=== PATIENT | male | born 1985 | race Caucasian/White ===

== ENCOUNTER → 2018-12-12 15:13 | Outpatient (CLI) | payer BC, SELFPAY ==
--- NOTE | 2018-12-12 15:14 | MR_ITS ---
MR elbow LT wo con CLINICAL INDICATION: Left elbow pain and weakness. Injury with popping sound ITS.REASON: evaluate for a distal bicep tear ORDERING PHYSICIAN: Dennis Driver MD PATIENT AGE: 33 years Comparison: 12/08/2018 TECHNIQUE: Routine multiplanar multiecho sequences are performed without contrast. FINDINGS: There does appear to be a complete tear of the distal aspect of the biceps tendon. The distal aspect of the tendon is thickened with some increased T2 signal at this area. There may be a few intact fibers extending to the radial tuberosity. For the most part however, the tendon appears retracted by approximately 1 cm. There is some edema around the retracted tendon. There is also some edema in the anterior aspect of the subcutaneous tissues. No acute fractures evident. No other significant anomalies are evident. The brachioradialis tendon appears intact IMPRESSION: Tear of the distal aspect of the biceps tendon which appears torn at the insertion upon the radial tuberosity with retraction of the tendon by approximately 1 cm. There may be a few intact fibers present.
== END ==
PROVIDERS: Visit Provider Orthopaedic Surgery
DX: M25.522 Pain in left elbow (principal)
CPT/HCPCS: 73221

== ENCOUNTER → 2018-12-20 10:11 | Outpatient (CLI) | payer BC, SELFPAY ==
[2018-12-20 11:38] LABS: Anion Gap 13.2 mEq/L (5-15); Basophils # 0.1 K/mm3 (0-0.2); Basophils % 0.8 % (0.1-2.0); Blood Urea Nitrogen 15 mg/dL (7-18); Calcium 9.3 mg/dL (8.5-10.1); Carbon Dioxide 27 mmol/L (21.0-32.0); Chloride 105 mmol/L (98-107); Creatinine,Serum 1.06 mg/dL (0.70-1.30); Eosinophils # 0.3 K/mm3 (0.0-0.4); Estimated Glomerular Filt Rate 80 ml/min (>60); GFR (African American) 96 ML/MIN (>60); Glucose 110 mg/dL (74-106); Hematocrit 43.9 % (42.0-52.0); Hemoglobin 14.9 g/dL (14.1-18.0); Lymphocytes # 4.1 K/mm3 (0.7-4.5); Lymphocytes % 49.9 % (10-50); Mean Corpuscular Hemoglobin 29.2 pg (27.0-31.2); Mean Corpuscular Volume 85.8 fl (80-94); Mean Platelet Volume 6.5 fl (7.4-10.4); Monocytes # 0.5 K/mm3 (0.1-1.0); Monocytes % 5.7 % (1.7-9.3); Neutrophils # 3.3 K/mm3 (1.8-7.8); Neutrophils % 39.7 % (37.0-80.0); Platelet Count 300 K/mm3 (142-424); Potassium 4.2 mmoL/L (3.5-5.1); Red Blood Count 5.12 M/mm3 (4.60-6.20); Red Cell Distribution Width 14.1 % (11.5-17.5); Sodium 141 mmol/L (136-145); White Blood Count 8.2 K/mm3 (4.8-10.8)
== END ==
PROVIDERS: Visit Provider Orthopaedic Surgery
DX: Z01.818 Encounter for other preprocedural examination (principal)
CPT/HCPCS: 36415; 80048; 85025

== ENCOUNTER 2019-01-03 13:37 | Outpatient (RCR) | payer BC, SELFPAY | END 2019-01-03 14:00 | disposition home or self-care (01) | LOC: OT 13:37 | PROVIDERS: Visit Provider Orthopaedic Surgery | DX: S46.212A Strain of muscle, fascia and tendon of other parts of biceps, left arm, initial encounter (principal) | CPT/HCPCS: 97763 ==

== ENCOUNTER 2019-03-20 13:30 | Outpatient (RCR) | payer BC, SELFPAY ==
--- NOTE | 2019-01-07 13:54 | HMH.OTOPEV ---
OT Inpatient Evaluation Rehab OT Outpatient Eval Start: 01/07/19 13:30 Freq: Status: Active Protocol: Document 01/07/19 13:32 TFRY (Rec: 01/07/19 13:54 TFRY [id number]) Electronically Signed By Jamila Galvan OT 01/07/19 13:32 Outpatient Therapy Subjective History Subjective History This is a 33 year old right handed male referred to occupational therapy for left bicep tendon repair on 12/23/18 . Patient repored the injury occurred on December 08 when he went to lift a 4 baxter. Chief Complaint Pain Symptom Type Sharp,Burning Symptoms Relieved By Rest/Positioning,Brace/Support Prior Functional Limitations None Current Functional Limitations Reaching,Lifting Symptom Description Intermittent Level of pain today (0-10) 0 Pain scale - at its best (0-10) 0 Pain scale - at its worst (0-10) 4 Shoulder/Elbow Eval Shoulder Objective Measurements Elbow Objective Measurements Elbow ROM Left decreased ROM elbow exam standard left pain with passive ROM elbow exam left standard Elbow Extension Passive Range of Motion 20 (degrees) Elbow Flexion Passive Range of Motion ( 130 degrees) Elbow ROM Limitations Pain Elbow MMT Elbow/Forearm Strength Reason Not Orthopedic Precautions Measured OT Outpatient Assessment Impairments Problems/Impairments Palpation Tenderness,Impaired Range of Motion,Impaired Strength,Impaired Lifting, Impaired Work Activities, Subjective C/O Pain Prognosis Rehab Potential Good Clinical Impression Consistent with Diagnosis Yes Short Term Goals Number of Weeks 4 Increase Range of Motion Yes: Left elbow PROM - WFL Patient to be Ind w/ HEP Yes Patient to be Ind w/ Advanced HEP Yes Senior Living Goals Number of Weeks 8 Increase Range of Motion Yes: Left elbow AROM - WFL Increase Strength Yes: Left elbow strength - 4-/ 5 Restore Ability to Lift Objects to Waist Yes: Left upper extremity 5 Level lbs Improve Tolerance to Work Activities Yes: Lift with both upper extremities 20 lbs Decrease Subjective C/O Pain Yes: pain in left arm a 2 at worse Patient to be Ind w/ HEP Yes Patient to be Ind w/ Advanced HEP Yes Outpatient Therapy Plan of Care Treatment Plan May Include Therapeutic Exercise Including Home
--- NOTE | 2019-03-06 09:42 | HMH.RHREAS ---
Rehab Reassessment Rehab OP Re-assessment Start: 03/06/19 08:45 Freq: Status: Active Protocol: Document 03/06/19 08:45 TFRY (Rec: 03/06/19 09:38 TFRY [id number]) Electronically Signed By Jamila Galvan OT 03/06/19 08:45 Rehab Re-assessment Subjective Subjective I don't go back to the doctor till April. Objective Objective Notes Patient seen this date for skilled occupational therapy services. Reassessment of right elbow AROM is WFL in all planes. Right elbow strength : flexion - 4-/5; extension - 4-/5; supination - 3+/5; pronation - 3+/5. Patient reports not having pain in elbow. Assessment Progress Assessment Progressing as Expected Assessment Notes ROM and strength are implroving. Patient goals met AROM met Goals Not Met Strength Revised Goals 1. Patient to have 5/5 strength in right elbow flexion/extension and forearm pronation/supination. Plan Plan Continue working on improving strength per revised goal. Frequency of Therapy 2 Duration of therapy 4 Time and Billing Re-Eval Time 5 Re-Eval Billing Units 0 PHYSICIAN CERTIFICATION: I certify the specified therapy services for Noah Zaidi are required, authorized, and reviewed every 30 days.
== END 2019-03-20 13:35 | disposition home or self-care (01) ==
LOC: OT 13:30
PROVIDERS: Visit Provider Orthopaedic Surgery
DX: S59.902D Unspecified injury of left elbow, subsequent encounter (principal); S43.21 Anterior subluxation and dislocation of sternoclavicular joint
CPT/HCPCS: 97014; 97110; 97140; 97164; 97165; G0283

== ENCOUNTER → 2019-04-22 13:01 | Outpatient (CLI) | payer BC, SELFPAY ==
--- NOTE | 2019-04-22 13:05 | XR_ITS ---
PROCEDURE: XR ELBOW LT MIN 3V CLINICAL INDICATION: sp LT bicep tendon repair DOS 04/22/19 COMPARISON: Elbow L from 12/08/2018 FINDINGS: Postoperative change from biceps tendon repair is noted with tunnel defect and metallic density associated with the proximal shaft of the radius. No acute fracture or dislocation is apparent The joint spaces are well-preserved. No significant degenerative/arthritic changes. No erosive changes evident. Other findings:None. IMPRESSION: Normal postoperative appearance for biceps tendon repair. Dictated by: Buck Artis 04/22/2019 16:52 Electronically signed by Buck Artis in [place] 04/22/2019 16:52
== END ==
PROVIDERS: Visit Provider Orthopaedic Surgery
DX: S46.212A Strain of muscle, fascia and tendon of other parts of biceps, left arm, initial encounter (principal); Z09 Encounter for follow-up examination after completed treatment for conditions other than malignant neoplasm
CPT/HCPCS: 73080

== ENCOUNTER 2021-09-03 15:39 | Emergency (ER) | payer BC, SELFPAY ==
[2021-09-03 16:01] VITALS: BP 180/105; PULSE 95; RESP 18; TEMP 37; O2SAT 98; BMI 32.6
--- NOTE | 2021-09-03 16:22 | HMH.EDUTC ---
[facility] – [place] Disposition Clinical Impression: Low back pain Qualifiers: Chronicity: acute Back pain laterality: left Sciatica presence: with sciatica Sciatica laterality: sciatica of left side Qualified Code(s): M54.42 - Lumbago with sciatica, left side Low back strain Qualifiers: Encounter type: initial encounter Qualified Code(s): S39.012A - Strain of muscle, fascia and tendon of lower back, initial encounter Disposition: Home, Self-Care Condition on Discharge: Good Instructions: DI for Low Back Pain Additional Instructions: Go home and rest. It would be best if you rested tomorrow too. No heavy lifting. No twisting. Take the oral medications as directed. The muscle relaxer (cyclobenzaprine--Flexeril) will make you drowsy, so don't drive or operate heavy machinery after taking it. Don't start the oral steroids (medrol dose pack) until tomorrow, since you had the shots in here today. Follow up with your regular doctor. GO TO THE ER FOR ANY WORSENING SYMPTOMS OR CONCERN, ESPECIALLY BOWEL OR BLADDER ISSUES, SADDLE AREA NUMBNESS, FEVER, ETC Prescriptions: Cyclobenzaprine HCl [Cyclobenzaprine 10mg Tab] 10 mg PO BIDP PRN #20 tab PRN Reason: Muscle Spasm Transmission Status: Pending to [facility] methylPREDNISolone [Medrol] 4 mg PO DIRECTED 6 Days #21 packet Transmission Status[id number] Referrals: Provider,Referral, [Primary Care Provider] - Forms: Work/School Release Time of Disposition: 17:55 Medical Decision Making - Medical Records Medical records reviewed: No: I reviewed the patient's medical records. - Jeffery Inquiry Pt receiving controlled substance: No Vital Signs: 09/03/21 16:01 09/03/21 17:28 Temperature 98.6 F 98.6 F Temperature Source Oral Pulse Rate 95 H Pulse Rate [Left Radial] 95 H Respiratory Rate 18 18 Blood Pressure 180/105 H Blood Pressure [Right Arm] 180/105 H Blood Pressure Mean [Right Arm] 130 02 Sat by Pulse Oximetry 98 Orders (Tests/Meds): ED MEDICATIONS Discontinued Medications Generic Name Dose Route Start Last Admin Trade Name Freq PRN Reason Stop Dose Admin Ketorolac Tromethamine 60 mg 09/03/21 17:17 09/03/21 17:28 Ketorolac 60mg/2ml Vial IM 09/03/21 17:18 60 mg ONCE ONE Administration Methylprednisolone Sodium Succinate 125 mg 09/03/21 17:17 09/03/21 17:28 Methylprednisolone Sod Succ 125mg Vial IM 09/03/21 17:18 125 mg ONCE ONE Administration Orphenadrine Citrate 60 mg 09/03/21 17:18 09/03/21 17:28 Orphenadrine Citrate 60mg/2ml Vial IM 09/03/21 17:19 60 mg ONCE ONE Administration ORDERS Category Date Time Status XR lumbar spine 2-3V Stat Exams 09/03/21 17:01 Taken XR thoracic spine 2V Stat Exams 09/03/21 17:01 Taken - Radiology Data #1 Image(s): L-Spine Image Reviewed: Yes I reviewed the patient's radiology image, Yes I have reviewed radiologist's interpretation [facility] [place] HPI - General Stated complaint: back pain no accident Time Seen by Provider: 09/03/21 16:22 Mode of Arrival: Ambulatory Source of Information: Patient Description of Symptoms (Recalled from Triage Doc. by RN): pt c/o back pain for about a week. pt states it is the lower part of his back, when he takes a deep breath or cough or move, it hurts. HEENT Symptoms (Recalled from RN notes): No Resp Symptoms (Recalled from RN notes): No Skin Symptoms (Recalled from RN notes): No MS Symptoms (Recalled from RN notes): Yes Functional Status (Recalled from RN notes): wnl - History of Present Illness Provider Complaint: He states that for the past 2 days he has had left sided low back pain. He denies any known injury. He states that he had to crawl under a boat trailer to work on its lights. When he rolled to come out from under the trailer and then stood up, he began having this pain. He has had low back pain but never as bad as this. He denies any numbness or tingling of his extremities. When he
--- NOTE | 2021-09-03 17:01 | XR_ITS ---
PROCEDURE INFORMATION: Exam: XR Thoracic Spine Exam date and time: 09/03/2021 5:00 PM Age: 36 years old Clinical indication: Pain in thoracic spine; Additional info: Back pain TECHNIQUE: Imaging protocol: XR of the thoracic spine. Views: 2 views. Total images: 3 COMPARISON: No relevant prior studies available. FINDINGS: Bones/joints: Normal thoracic spine alignment. No blastic or lytic lesions. Disc space heights are well-maintained. Minimal anterior spurring at a few midthoracic levels. Question mild fullness of the left paraspinous soft tissues in the mid and lower thoracic spine without focality. This is nonspecific. CT would allow more sensitive/specific assessment if clinically indicated. No adjacent bony changes. No rib fractures are identified within the [id number]. Soft tissues: Unremarkable. Lungs: Granulomatous calcification in the right lower lobe and right perihilar region. Pleural space: No pleural effusion or pneumothorax is evident within the [id number]-[id number]. Vasculature: Mild aortic ectasia. Cardiomediastinal silhouette otherwise unremarkable. Other findings: No fractures are evident radiographically. IMPRESSION: 1. No definite acute process. No evidence of fracture or traumatic subluxation. 2. Minor osteoarthritic spurring at a few midthoracic levels. 3. Mild fullness of the left paraspinous soft tissues which is nonspecific and may simply relate to the esophagus. No adjacent bony changes. If clinically indicated, CT would be more sensitive and specific.
--- NOTE | 2021-09-03 17:01 | XR_ITS ---
PROCEDURE INFORMATION: Exam: XR Lumbosacral Spine Exam date and time: 09/03/2021 5:00 PM Age: 36 years old Clinical indication: Low back pain TECHNIQUE: Imaging protocol: XR of the lumbosacral spine. Views: 2 or 3 views. Total images: 3 COMPARISON: No relevant prior studies available. FINDINGS: Bones/joints: Normal alignment. Normal mineralization. No compression injuries or other fractures. No blastic or lytic lesions. Disc space heights are well-maintained. Minor facet hypertrophic changes L4-L5 and L5-S1. No gross pars defects. The visualized sacrum/pelvis and SI joints are unremarkable. A 2.5 cm radiodensity projects over the right obturator foramen on the frontal view and is not visualized on the lateral view, probably extrinsic. Soft tissues: No gross soft tissue abnormalities. Gastrointestinal tract: Unremarkable bowel gas pattern. IMPRESSION: 1. No acute findings. 2. Minor lower lumbar facet hypertrophy.
[2021-09-03 17:28] VITALS: BP 180/105; PULSE 95; RESP 18; TEMP 37
== END 2021-09-03 18:03 | disposition home or self-care (01) ==
PROVIDERS: Emergency Provider Nurse Practitioner Family
DX: M54.42 Lumbago with sciatica, left side (principal); S39.012A Strain of muscle, fascia and tendon of lower back, initial encounter; Z79.52 Long term (current) use of systemic steroids; Z88.0 Allergy status to penicillin; Z88.1 Allergy status to other antibiotic agents; Z88.3 Allergy status to other anti-infective agents
CPT/HCPCS: 72070; 72100; 96372; 99213; G0463

== ENCOUNTER 2021-09-30 16:43 | Emergency (ER) | payer BC, SELFPAY ==
[2021-09-30 17:15] VITALS: BP 140/99; PULSE 86; RESP 19; TEMP 36.7; O2SAT 99; BMI 32.6
--- NOTE | 2021-09-30 17:30 | HMH.EDUTC ---
[facility] – [place] Disposition Clinical Impression: Low back pain Qualifiers: Chronicity: unspecified Back pain laterality: unspecified Sciatica presence: without sciatica Qualified Code(s): M54.50 - Low back pain, unspecified Disposition: Home, Self-Care Condition on Discharge: Good Instructions: Low Back Pain, DI for Low Back Pain Additional Instructions: *Etodolac aldair 8 hours with meal as needed for pain/inflammation *Remember you had a Toradol shot in the clinic today, which is similar to Etodolac so do not start till tomorrow *Not additional anti-inflammatory like ibuprofen, motrin, aleve, advil with the above amount of Etodolac. You can still take Tylenol every 4 hours as needed if you need something else for pain *Ice 20 minutes every 2 hours for the first 48 hours after the initial injury followed by moist heat every 20 minutes 3-4 times a day to affected area *Muscle relaxer every 8 hours as prescribed previously as needed for muscle spasms but remember, it WILL cause drowsiness You cannot take it and drive, operate machinery or care for small children. *Keep this area active, no movement leads to more stiffness, However take it easy and avoid heavy lifting pushing or pulling *Follow up with you family doctor if no improvement for further treatment Start oral steriod tomorrow 10/01/21 Prescriptions: Etodolac 200 mg PO Q8HP PRN #20 cap PRN Reason: Moderate Pain Transmission Status: Pending to [facility] methylPREDNISolone [Medrol 4mg tab] 4 mg PO DIRECTED #21 tab [facility]: [facility] Referrals: Provider,Referral, [Primary Care Provider] - Medical Decision Making - Jeffery Inquiry Pt receiving controlled substance: No Jeffery was queried for this patient: No Vital Signs: 09/30/21 17:15 Temperature 98.1 F Temperature Source Oral Pulse Rate [Right Brachial] 86 Respiratory Rate 19 Blood Pressure [Right Arm] 140/99 H Blood Pressure Mean [Right Arm] 112 Blood Pressure Source [Right Arm] Automatic Cuff Blood Pressure Position [Right Arm] Sitting 02 Sat by Pulse Oximetry 99 Oxygen Delivery Method Room Air Orders (Tests/Meds): ED MEDICATIONS Discontinued Medications Generic Name Dose Route Start Last Admin Trade Name Freq PRN Reason Stop Dose Admin Ketorolac Tromethamine 30 mg 09/30/21 17:45 Ketorolac 60mg/2ml Vial IM 09/30/21 17:46 ONCE ONE Methylprednisolone Sodium Succinate 125 mg 09/30/21 17:45 Methylprednisolone Sod Succ 125mg Vial IM 09/30/21 17:46 ONCE ONE Orphenadrine Citrate 30 mg 09/30/21 17:45 Orphenadrine Citrate 60mg/2ml Vial IM 09/30/21 17:46 ONCE ONE [facility] [place] HPI - General Stated complaint: back pain Time Seen by Provider: 09/30/21 17:30 Mode of Arrival: Ambulatory Source of Information: Patient Limitations: No Limitations Description of Symptoms (Recalled from Triage Doc. by RN): PATIENT C/O LOWER BACK PAIN THAT STARTED TODAY HEENT Symptoms (Recalled from RN notes): No Resp Symptoms (Recalled from RN notes): No Skin Symptoms (Recalled from RN notes): No MS Symptoms (Recalled from RN notes): Yes Functional Status (Recalled from RN notes): WNL - History of Present Illness Provider Complaint: Patient states that he was seen and treated about a month ago for low back pain States that this morning he was getting out of bed and had a catch in his back and started having pain and spasms again States that he tried to take a flexeril but vomited due to the pain States that as the day went on he has continued to have spasms in his back Denies injury and denies loss of cotnrol of bowel and bladder - Related Data Previous Rx's Medication Instructions Recorded Cyclobenzaprine HCl 10 mg PO BIDP PRN #20 tab 09/03/21 [Cyclobenzaprine 10mg Tab] methylPREDNISolone [Medrol] 4 mg PO DIRECTED 6 Days #21 09/03/21 packet Etodolac 200 mg PO Q8HP PRN #20 cap 09/30/21 methylPREDNISolone [Medrol 4mg 4 mg PO DIRECT
[2021-09-30 18:07] VITALS: BP 140/99; PULSE 86; RESP 19; TEMP 36.7; O2SAT 99
== END 2021-09-30 18:27 | disposition home or self-care (01) ==
PROVIDERS: Emergency Provider Nurse Practitioner
DX: M54.50 Low back pain, unspecified (principal); M62.830 Muscle spasm of back
CPT/HCPCS: 96372; 99213; G0463

== ENCOUNTER 2023-08-13 13:23 | Emergency (ER) | payer BC, SELFPAY ==
[2023-08-13 13:45] VITALS: BP 151/89; PULSE 87; RESP 18; TEMP 36.7; O2SAT 99; BMI 34.7
--- NOTE | 2023-08-13 14:02 | EXP.UTC ---
Discharge Plan Disposition Patient Disposition: Home, Self-Care Condition: Good Prescriptions Prescriptions: New cyclobenzaprine 10 mg Tablet 10 mg PO BID PRN (Reason: Muscle Spasm) Qty: 20 0RF methylprednisolone 4 mg Tablets,Dose Pack 4 mg PO DIRECTED 6 Days Qty: 21 0RF Rx Instructions: Take 1 pack as directed for 6 days Referrals Follow up/Referrals: Provider,Referral, MD [Primary Care Provider] - See instructions Activity Restrictions/Add. Instructions Additional Instructions/Restrictions: Go home and rest. It would be best if you rested tomorrow too. No heavy lifting. No twisting. Take the oral medications as directed. The muscle relaxer (cyclobenzaprine--Flexeril) will make you drowsy, so don't drive or operate heavy machinery after taking it. Don't start the oral steroids (medrol dose pack) until tomorrow, since you had the shots in here today. Follow up with your regular doctor. GO TO THE ER FOR ANY WORSENING SYMPTOMS OR CONCERN, ESPECIALLY BOWEL OR BLADDER ISSUES, SADDLE AREA NUMBNESS, FEVER, ETC Clinical Impressions Clinical Impression: Thoracic back pain, Left shoulder pain, Tendinopathy of left shoulder Stand Alone Forms Stand Alone Forms: Work/School Release Discharge ED Provider: Miguel Steel [facility] General Stated complaint: muscle pain in back Time Seen by Provider: 08/13/23 14:02 History of Present Illness Provider Complaint: He states that he has had left shoulder pain and upper back pain for the past 3 days. His symptoms began after he had worked all day in his yard. He states that moving his left arm or shoulder makes his pain worse. He denies any fall or trauma. He has been taking tylenol and ibuprofen for pain, but that has only helped minimally. He denies any additional symptoms or complaints. Related Data Previous Rx's Medication Instructions Recorded cyclobenzaprine 10 mg tablet 10 mg PO BID PRN Muscle Spasm #20 08/13/23 tabs methylprednisolone 4 mg tablets in 4 mg PO DIRECTED 6 days #21 tabs 08/13/23 a dose pack Allergies Allergy/AdvReac Type Severity Reaction Status Date / Time azithromycin [AZITHROMYCIN] Allergy Unknown Verified 08/13/23 14:04 erythromycin base Allergy Verified 08/13/23 14:04 [facility] Disclaimer: The information contained in this section may have been updated after the patient was seen, as this information can be updated by other users. Social History Smoking Status: Never smoker alcohol intake: never substance use type: other current occupational status: other Travel in the last 8 weeks: None household members: significant other housing: house current occupation: 3[employer] caffeine: No ROS Obtained: Yes All systems reviewed & no additional complaints except as documented Constitutional Constitutional: Denies chills and Denies fever(s) Eyes Eyes: Denies eye discharge ENT Ears, Nose, Mouth, and Throat: Denies dizziness, Denies otalgia, Denies neck pain and Denies sore throat Cardiovascular Cardiovascular: Denies chest pain Respiratory Respiratory: Denies shortness of breath, Denies chest congestion, Denies cough, Denies stridor and Denies wheezing Gastrointestinal Gastrointestingal: Denies nausea or vomiting Musculoskeletal Musculoskeletal: Reports as per HPI, Reports back pain and Denies neck pain Integumentary/Breasts Skin/Breast: Denies rash Neurologic Neurologic: Denies dizziness and Denies paresthesias Allergic/Immunologic Allergic/Immunologic: Denies wheezing Physical Exam General General appearance: alert and in no apparent distress Head Head exam: atraumatic, normocephalic and normal inspection Eye Eye exam: Present normal appearance, PERRL and EOMI ENT ENT exam: Present normal exam, normal oropharynx, mucous membranes moist, TM's normal bilaterally and normal external ear exam Neck Neck exam: Present normal inspection, full ROM and trachea midline; Absent meningismus or lymphadenopathy Chest Chest inspection: Present normal inspection and symmetric chest wall rise; Absent tenderness Respiratory Respiratory exam: Present normal lung sounds bilaterally; Absent respiratory distress Cardiovascular Cardiovascular exam: Present regular rate and normal rhythm; Absent JVD Abdominal Exam Abdominal exam: Present soft and normal bowel sounds; Absent distention, tenderness or guarding Extremities Exam Extremities exam: Present normal capillary refill; Absent calf tenderness Expanded Upper Extremity Exam Left: Shoulder exam: Present full ROM and tenderness; Absent normal inspection, swelling, abrasion, laceration, ecchymosis, deformity, crepitus, dislocation, erythema or tenderness over AC joint Arm exam: Present normal inspection and full ROM; Absent tenderness or swelling Elbow exam: Present normal inspection and full ROM; Absent tenderness, pain w/ pronation/supination or tenderness over radial head Forearm/Wrist exam: Present normal inspection and full ROM; Absent tenderness Hand exam: Present normal inspection and full ROM; Absent tenderness Neuromotor exam: Normal wrist extension, thumb opposition, thumb IP flexion, thumb adduction and fingers 2-5 abduction Neurosensory exam: Normal radial nerve, ulnar nerve and median nerve Vascular exam: Normal capillary refill, radial pulse and ulnar pulse Back Exam Back exam: Present normal inspection; Absent tenderness, CVA tenderness (R), CVA tenderness (L), muscle spasm, paraspinal tenderness, vertebral tenderness, rashes, sciatic notch tenderness (R), sciatic notch tenderness (L), straight leg raise (R) or straight leg raise (L) Neurological Exam Neurological exam: Present alert and oriented X3 Psychiatric Psychiatric exam: Present normal affect and normal mood Skin Skin exam: Present warm, dry, intact and normal color Lymphatic Lymphatic Findings: no adenopathy Medical Decision Making Medical Records Medical records reviewed: No I reviewed the patient's medical records. Jeffery Inquiry Pt receiving controlled substance: No
[2023-08-13] MEDS: DEXAMETHASONE 4MG/ML 1ML VIAL 8 MG IM (14:16)
[2023-08-13] MEDS: KETOROLAC 60MG/2ML VIAL 60 MG IM (14:16)
[2023-08-13 14:38] VITALS: BP 151/89; PULSE 87; RESP 18; TEMP 36.7; O2SAT 99
== END 2023-08-13 14:38 | disposition home or self-care (01) ==
PROVIDERS: Emergency Provider Nurse Practitioner Family
DX: M54.6 Pain in thoracic spine (principal); M25.512 Pain in left shoulder; M67.912 Unspecified disorder of synovium and tendon, left shoulder
CPT/HCPCS: 96372; 99212; 99214; G0463